=== PATIENT | male | born 1985 | race Caucasian/White ===

== ENCOUNTER 2019-02-04 17:25 | Emergency (ER) | payer BC ==
[~2019-02-04] VITALS: Ht 172.7 cm; Wt 99.3 kg
--- NOTE | 2019-02-04 18:00 | NUR ---
patient presented to the ER c/o "im taking steroids and Im bruising and legs swollen". on room air, breathing evenly and unlabored. Kept comfortable, will continue to monitor accordingly.
[2019-02-04 18:36] LABS: CALCIUM, SERUM 8.9 mg/dL (8.5-10.1); CARBON DIOXIDE 37 mmol/L (21-32); CHLORIDE 103 mmol/L (98-107); CREATININE 1.2 mg/dL (0.6-1.3); GLUCOSE 93 mg/dL (74-106); POTASSIUM 4.1 mmol/L (3.5-5.1); SODIUM SERUM 140 mmol/L (136-145); UREA NITROGEN, BLOOD 15 mg/dL (7-18)
[2019-02-04 18:38] LABS: BASOPHILS % (AUTO) 0.3 % (0.0-2.0); EOSINOPHILS % (AUTO) 0.4 % (0.0-6.0); HEMATOCRIT 39 % (39-51); HEMOGLOBIN 12.6 g/dL (13.5-17.5); LYMPHOCYTES # (AUTO) 1.9 /CMM (0.8-4.8); LYMPHOCYTES % (AUTO) 14.9 % (20.0-44.0); MEAN CORPUSCULAR HGB CONC 32 g/dl (31.0-36.0); MEAN CORPUSCULAR VOLUME 78 fL (80-96); MONOCYTES # (AUTO) 1.4 /CMM (0.1-1.30); MONOCYTES % (AUTO) 10.8 % (2.0-12.0); NEUTROPHILS # (AUTO) 9.3 /CMM (1.8-8.9); NEUTROPHILS % (AUTO) 73.6 % (43.0-81.0); PLATELET COUNT (AUTO) 287 /CMM (150-450); RED BLOOD CELL COUNT(AUTO) 5.02 MIL/uL (4.5-6.0); WHITE BLOOD COUNT (AUTO) 12.6 K/uL (4.3-11.0)
[2019-02-04 18:50] LABS: B-TYPE NATRIURETIC PEPTIDE 36 PG/ML (0-125)
[2019-02-04 18:59] VITALS: BP 110/66
--- NOTE | 2019-02-04 19:14 | NUR ---
RECEIVED PT AND REPORT FROM MEE MORA FOR DELILAH. PT IS AAOX4. NAD. AMBULATORY.
--- NOTE | 2019-02-04 19:31 | NUR ---
Patient discharged to home in stable condition. Written and verbal after care instructions given. Patient verbalizes understanding of instruction.
== END 2019-02-04 19:32 | disposition home or self-care (01) ==
LOC: ER 17:30
DX: R60.0 Localized edema (principal); Z98.890 Other specified postprocedural states
CPT/HCPCS: 36415; 71045-TC; 80048-TC; 83880; 84484-TC; 85025-TC; 93970-TC

== ENCOUNTER 2019-02-19 23:45 | Emergency (ER) | payer BC, OTHER ==
[~2019-02-19] VITALS: Ht 172.7 cm; Wt 96.2 kg
--- NOTE | 2019-02-20 00:25 | NUR ---
PRESENTED TO THE ER WITH FAMILY W/ C/O BLE PAIN AND EDEMA. 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 HX OF R ANKLE SX. VSS. WILL CONT TO MONITOR ,
--- NOTE | 2019-02-20 00:48 | NUR ---
Patient discharged to home in stable condition. Written and verbal after care instructions given. Patient verbalizes understanding of instruction.
[2019-02-20 00:50] VITALS: BP 142/78
== END 2019-02-20 00:53 | disposition home or self-care (01) ==
LOC: ER 23:45
DX: R60.0 Localized edema (principal); K50.90 Crohn's disease, unspecified, without complications; R94.31 Abnormal electrocardiogram [ECG] [EKG]; Z98.890 Other specified postprocedural states; Z88.8 Allergy status to other drugs, medicaments and biological substances

== ENCOUNTER 2019-04-02 00:08 | Emergency (ER) | payer BC, OTHER ==
[~2019-04-02] VITALS: Ht 172.7 cm; Wt 90.7 kg
--- NOTE | 2019-04-02 00:22 | NUR ---
BIB SELF. COMPLAINING OF ABD PAIN. 2X VOMITING.
[2019-04-02] MEDS ORDERED: IV NS 0.9% 1,000 ML BAG IV ONE (00:30)
[2019-04-02] MEDS ORDERED: KETOROLAC TROMETHAMINE INJ 30 MG/ML VIAL IV ONE (00:30)
[2019-04-02] MEDS ORDERED: MORPHINE SULFATE INJ 2 MG/ML DISP.SYRIN IV ONE ×2 (00:30→02:30)
[2019-04-02] MEDS ORDERED: ONDANSETRON HCL/PF 4 MG/2 ML VIAL IVP ONE (00:30)
[2019-04-02] MEDS ORDERED: MORPHINE SULFATE INJ 4 MG/ML DISP.SYRIN ONE ×2 (00:37→02:21)
[2019-04-02] MEDS ORDERED: KETOROLAC TROMETHAMINE 15 MG/ML VIAL ONE (00:37)
[2019-04-02] MEDS ORDERED: ONDANSETRON HCL/PF 4 MG/2 ML VIAL ONE (00:37)
[2019-04-02 00:40] LABS: LYMPHOCYTES # (AUTO) 2.3 /CMM (0.8-4.8); MONOCYTES # (AUTO) 0.7 /CMM (0.1-1.30); NEUTROPHILS # (AUTO) 4.7 /CMM (1.8-8.9); PLATELET COUNT (AUTO) 353 /CMM (150-450); RED BLOOD CELL COUNT(AUTO) 5.07 MIL/uL (4.5-6.0)
[2019-04-02 00:51] LABS: CALCIUM, SERUM 8.7 mg/dL (8.5-10.1); POTASSIUM 3.6 mmol/L (3.5-5.1)
[2019-04-02 00:54] LABS: BASOPHILS % (AUTO) 0.4 % (0.0-2.0); EOSINOPHILS % (AUTO) 1.4 % (0.0-6.0); HEMATOCRIT 37 % (39-51); HEMOGLOBIN 11.7 g/dL (13.5-17.5); LYMPHOCYTES % (AUTO) 29.7 % (20.0-44.0); MEAN CORPUSCULAR HGB CONC 32 g/dl (31.0-36.0); MEAN CORPUSCULAR VOLUME 72 fL (80-96); MONOCYTES % (AUTO) 8.6 % (2.0-12.0); NEUTROPHILS % (AUTO) 59.9 % (43.0-81.0); WHITE BLOOD COUNT (AUTO) 7.8 K/uL (4.3-11.0)
[2019-04-02 00:55] LABS: ALBUMIN 3.4 g/dL (3.4-5.0); BILIRUBIN,DIRECT 0.1 mg/dL (0.0-0.2); BILIRUBIN,TOTAL 0.4 mg/dL (0.2-1.0); TOTAL PROTEIN, SERUM 7.5 g/dL (6.4-8.2)
--- NOTE | 2019-04-02 00:55 | NUR ---
RAC G20 STARTED. IV NS 1L BOLUS RUNNING.
[2019-04-02 01:23] LABS: LYMPHOCYTES % (MANUAL) 33 % (16-48); MONOCYTES % (MANUAL) 6 % (0-11.0); NEUTROPHILS % (MANUAL) 61 (42-76)
[2019-04-02 02:45] LABS: APPEARANCE,URINE CLEAR (CLEAR); BILIRUBIN,URINE 1+ (NEGATIVE); BLOOD, URINE NEGATIVE Ery/uL (NEGATIVE); COLOR,URINE YELLOW (YELLOW); KETONES,URINE 1+ (NEGATIVE); LEUKOCYTE ESTERASE ,URINE NEGATIVE (NEGATIVE); NITRITE, URINE NEGATIVE (NEGATIVE); PROTEIN,URINE 1+ mg/dl (NEGATIVE); UGLUCOSE NEGATIVE (NEGATIVE)
[2019-04-02 02:52] VITALS: BP 127/68
[2019-04-02 03:22] LABS: BACTERIA,URINE Few /HPF (None Seen); MUCUS,URINE Moderate /LPF (None Seen); SQUAMOUS EPITHELIAL CELL,UR Rare /HPF (None Seen)
== END 2019-04-02 02:52 | disposition home or self-care (01) ==
LOC: ER 00:09
DX: K80.50 Calculus of bile duct without cholangitis or cholecystitis without obstruction (principal); R10.13 Epigastric pain; R11.10 Vomiting, unspecified; K50.90 Crohn's disease, unspecified, without complications; Z98.890 Other specified postprocedural states; Z88.1 Allergy status to other antibiotic agents
CPT/HCPCS: 36415; 71045; 76700; 80048; 80076; 81001; 83690; 85025; 87086; 96361; 96374; 96375; 96376; 99284; J1885; J2270 ×2; J2405; J7030; 81000-TC

== ENCOUNTER 2019-04-10 21:44 | Emergency (ER) | payer BC, OTHER ==
[~2019-04-10] VITALS: Ht 172.7 cm; Wt 90.7 kg
--- NOTE | 2019-04-10 21:57 | NUR ---
BIBSELF C/O ABD PAIN "GALLBLADDER STONES" X 2 HOURS WITH NAUSEA BIBSELF C/O ABD PAIN "GALLBLADDER STONES" X 2 HOURS WITH NAUSEA. NO ACUTE DISTRESS NOTED. AT BEDSIDE, MADE COMFORTABLE, AND READY FOR EVAL.
[2019-04-10 22:29] LABS: BASOPHILS % (AUTO) 0.5 % (0.0-2.0); EOSINOPHILS % (AUTO) 3.3 % (0.0-6.0); HEMATOCRIT 33 % (39-51); HEMOGLOBIN 10.4 g/dL (13.5-17.5); LYMPHOCYTES # (AUTO) 2.4 /CMM (0.8-4.8); LYMPHOCYTES % (AUTO) 39.4 % (20.0-44.0); MEAN CORPUSCULAR HGB CONC 32 g/dl (31.0-36.0); MEAN CORPUSCULAR VOLUME 72 fL (80-96); MONOCYTES # (AUTO) 0.6 /CMM (0.1-1.30); MONOCYTES % (AUTO) 9.6 % (2.0-12.0); NEUTROPHILS # (AUTO) 2.8 /CMM (1.8-8.9); NEUTROPHILS % (AUTO) 47.2 % (43.0-81.0); PLATELET COUNT (AUTO) 281 /CMM (150-450); RED BLOOD CELL COUNT(AUTO) 4.52 MIL/uL (4.5-6.0)
[2019-04-10] MEDS ORDERED: ONDANSETRON HCL/PF 4 MG/2 ML VIAL IVP ONE (22:30)
[2019-04-10] MEDS ORDERED: MORPHINE SULFATE INJ 2 MG/ML DISP.SYRIN IV ONE (22:30)
[2019-04-10] MEDS ORDERED: ONDANSETRON HCL/PF 4 MG/2 ML VIAL ONE (22:30)
[2019-04-10] MEDS ORDERED: MORPHINE SULFATE INJ 4 MG/ML DISP.SYRIN ONE (22:30)
[2019-04-10] MEDS ORDERED: IV NS 0.9% 1,000 ML BAG IV ONE (22:30)
[2019-04-10 22:35] LABS: CALCIUM, SERUM 8.3 mg/dL (8.5-10.1); POTASSIUM 3.7 mmol/L (3.5-5.1)
[2019-04-10 22:41] LABS: ALBUMIN 3.2 g/dL (3.4-5.0); BILIRUBIN,DIRECT 0.1 mg/dL (0.0-0.2); BILIRUBIN,TOTAL 0.3 mg/dL (0.2-1.0); TOTAL PROTEIN, SERUM 6.9 g/dL (6.4-8.2)
[2019-04-10 23:17] LABS: EOSINOPHILS % (MANUAL) 2 % (0-4); LYMPHOCYTES % (MANUAL) 33 % (16-48); MONOCYTES % (MANUAL) 7 % (0-11.0); NEUTROPHILS % (MANUAL) 58 (42-76)
--- NOTE | 2019-04-10 23:24 | NUR ---
Patient is resting comfortably in bed. Easily aroused. VSS
--- NOTE | 2019-04-11 00:04 | NUR ---
Patient discharged to home in stable condition. Rx and Written and verbal after care instructions given. Patient verbalizes understanding of instruction.
[2019-04-11 00:05] VITALS: BP 119/76
== END 2019-04-11 00:06 | disposition home or self-care (01) ==
LOC: ER 21:44
DX: K80.70 Calculus of gallbladder and bile duct without cholecystitis without obstruction (principal); Z98.890 Other specified postprocedural states; Z88.8 Allergy status to other drugs, medicaments and biological substances
CPT/HCPCS: 36415; 80048; 80076; 83690; 85025; 96374; 96375; 99283; J2270; J2405; J7030

== ENCOUNTER 2021-03-23 06:49 | Emergency (ER) | payer BC, OTHER ==
[~2021-03-23] VITALS: Ht 172.7 cm; Wt 90.7 kg
--- NOTE | 2021-03-23 07:09 | NUR ---
PATIENT TO ER BED 3 C/O "I CAN'T SLEEP, I FEEL ANXIOUS BECAUSE I CAN'T SLEEP." PATIENT STATES THAT HE TOOK [facility] TO HELP SLEEP ABOUT 10 xHRS AGO. PATIENT IS ALERT AND ORIENTED x4. DENIES SHORTNESS OF BREATH. BREATHING EVENLY AND UNLABORED ON ROOM AIR. CONNECTED TO THE MONITOR.
[2021-03-23] MEDS ORDERED: LORAZEPAM INJ 2 MG/ML VIAL ONE (07:51)
[2021-03-23] MEDS ORDERED: IV NS 0.9% 1,000 ML IV ONE (08:00)
[2021-03-23] MEDS ORDERED: LORAZEPAM INJ 2 MG/ML VIAL IV ONE (08:00)
--- NOTE | 2021-03-23 08:01 | NUR ---
IV LINE ESTABLISHED, BLOOD DRAWN AND SENT TO LAB.
[2021-03-23 08:02] LABS: BASOPHILS % (AUTO) 0.3 % (0.0-2.0); EOSINOPHILS % (AUTO) 0.9 % (0.0-6.0); HEMATOCRIT 43 % (39-51); LYMPHOCYTES # (AUTO) 1.1 /CMM (0.8-4.8); LYMPHOCYTES % (AUTO) 14.8 % (20.0-44.0); MEAN CORPUSCULAR HGB CONC 33 g/dl (31.0-36.0); MEAN CORPUSCULAR VOLUME 78 fL (80-96); MONOCYTES # (AUTO) 0.4 /CMM (0.1-1.30); MONOCYTES % (AUTO) 4.9 % (2.0-12.0); NEUTROPHILS # (AUTO) 5.8 /CMM (1.8-8.9); NEUTROPHILS % (AUTO) 79.1 % (43.0-81.0); PLATELET COUNT (AUTO) 259 /CMM (150-450); RED BLOOD CELL COUNT(AUTO) 5.52 MIL/uL (4.5-6.0); WHITE BLOOD COUNT (AUTO) 7.3 K/uL (4.3-11.0)
[2021-03-23 08:17] LABS: CALCIUM, SERUM 9.3 mg/dL (8.5-10.1); POTASSIUM 3.8 mmol/L (3.5-5.1)
[2021-03-23 08:30] LABS: THYROID STIMULATING HORMONE 0.57 uIU/mL (0.358-3.74)
[2021-03-23] MEDS ORDERED: ONDANSETRON HCL/PF - ER 4 MG/2 ML VIAL IV ONE (08:30)
[2021-03-23] MEDS ORDERED: ONDANSETRON HCL/PF 4 MG/2 ML VIAL ONE (08:31)
[2021-03-23] MEDS ORDERED: ZOLP10TA2 PO (09:25)
--- NOTE | 2021-03-23 09:41 | NUR ---
DISCHARGED PT TO HOME. A/O X4. NO PAIN REPORTED. NO SOB, STABLE ON ROOM AIR. IV CANNULA REMOVED. PRESCRIPTION AND DISCHARGE EDUCATION GIVEN TO THE PT. VERBALIZED UNDERSTANDING. WENT HOME IN STABLE CONDITION.
[2021-03-23 09:50] VITALS: BP 131/79
== END 2021-03-23 09:54 | disposition home or self-care (01) ==
LOC: ER 06:52
DX: G47.00 Insomnia, unspecified (principal); F41.9 Anxiety disorder, unspecified; E86.0 Dehydration; Z98.890 Other specified postprocedural states; Z79.899 Other long term (current) drug therapy; Z88.8 Allergy status to other drugs, medicaments and biological substances
CPT/HCPCS: 36415; 80048; 83735; 84439; 84443; 85025; 96361; 96374; 96375; 99284; J2060; J2405 ×2; J7030

== ENCOUNTER 2022-01-27 10:15 | Emergency (ER) | payer BC, OTHER ==
[~2022-01-27] VITALS: Ht 172.7 cm; Wt 91.2 kg
[~2022-01-27 10:15] MED LIST: ZOLP10TA2 PO
--- NOTE | 2022-01-27 10:15 | NUR ---
TO ER BED 2. BIBS C/O UNABLE TO SLEEP X5 DAYS. PT VITALS ARE WITHIN NORMAL LIMTIS. BREATHING IS EVEN AND UNLABORED.
[2022-01-27] MEDS ORDERED: LORAZEPAM INJ 2 MG/ML VIAL IM ONE (12:00)
[2022-01-27] MEDS ORDERED: LORAZEPAM INJ 2 MG/ML VIAL ONE (12:15)
[2022-01-27 12:42] VITALS: BP 122/71
--- NOTE | 2022-01-27 12:42 | NUR ---
Patient discharged to home in stable condition. Written and verbal after care instructions given. Patient verbalizes understanding of instruction.
== END 2022-01-27 12:42 | disposition home or self-care (01) ==
LOC: ER 10:19
DX: G47.00 Insomnia, unspecified (principal); F41.9 Anxiety disorder, unspecified; Z98.890 Other specified postprocedural states; Z88.8 Allergy status to other drugs, medicaments and biological substances; Z79.899 Other long term (current) drug therapy
CPT/HCPCS: 96372; 99283; J2060